=== PATIENT | female | born 1980 | race Caucasian/White ===

== ENCOUNTER 2017-09-30 19:18 | Emergency (ER) | payer MEDICAID, OTHER ==
[~2017-09-30] VITALS: Ht 167.6 cm; Wt 58.2 kg
[2017-09-30 19:20] VITALS: Ht 167.6 cm; Wt 58.2 kg
[2017-09-30] MEDS ORDERED: ACET500C5 PO (22:12)
--- NOTE | 2017-09-30 22:18 | ERD ---
ER Documentation Chief Complaint Chief Complaint right breast pain x 3 weeks HPI 37-year-old female patient with no significant past medical history presents to the ED complaining of bilateral nipple discharge and bilateral breast pain that started intermittently for the last 3 weeks. Patient reports that she predominantly has pain in the right breast. Denies any chest pain, shortness of breath, fever, chills, wheezing, abdominal pain, nausea, vomiting, diarrhea. Reports that she just got an Implanon placed in February 2017 and has not had a menstruation since then. Denies any fever, increased redness or swelling of the bilateral breasts. Denies obtaining a mammogram. ROS All systems reviewed and are negative except as per history of present illness. Medications Home Meds Active Scripts Acetaminophen* (Tylophen*) 500 Mg Capsule, 1 CAP PO Q6H Y for PAIN AND OR ELEVATED TEMP, #20 CAP Prov:YARIEL ERAZO PA-C 09/30/17 Allergies Allergies: Coded Allergies: No Known Allergy (Unverified , 09/30/17) PMhx/Soc History of Surgery: No Anesthesia Reaction: No Hx Neurological Disorder: No Hx Respiratory Disorders: No Hx Cardiac Disorders: No Hx Psychiatric Problems: No Hx Miscellaneous Medical Probl: No Hx Alcohol Use: No Hx Substance Use: No Hx Tobacco Use: No Smoking Status: Never smoker Physical Exam Vitals Vital Signs Date Time Temp Pulse Resp B/P Pulse Ox O2 Delivery O2 Flow Rate FiO2 09/30/17 19:20 98.5 83 20 132/71 100 Physical Exam Const: Fwl-[id number]-[place], well-nourished. In no acute distress. Head: Atraumatic, normocephalic Eyes: Normal Conjunctiva without injection. No purulent discharge. PERRL. EOMI ENT: Normal external ear. Ear canal without erythema. Tympanic membrane pearly lucas without effusion or bulging. Nasal canal clear with normal turbinates. Moist oropharynx without tonsillar exudates. Non-erythematous pharynx. Uvula midline. No drooling. No trismus. Neck: Full range of motion. No meningismus. No cervical lymphadenopathy. Resp: Clear to auscultation bilaterally. No wheezing, rhonchi, rales, or crackles. No accessory muscle use. No retractions. Cardio: Regular rate and rhythm. No murmurs, rubs or gallops. Breast: Nonerythematous, nonfluctuant. No masses palpated. Bilateral milky discharged when nipples are squeezed. No warmth to touch. Abd: Soft, non tender, non distended. Normal bowel sounds. No palpable masses. No rebound tenderness. No guarding. Skin: No petechiae or rashes Back: No midline tenderness. No CVA tenderness. Ext: No cyanosis, or edema. Neur: Awake and alert. Psych: Normal Mood and Affect Procedures/MDM 37-year-old female patient with no significant past medical history presents the ED complaining of bilateral breast pain that started intermittently for the last 3 weeks. Patient is afebrile nontoxic appearing. Patient has normal vital signs. At this time there is no radiologist that will read results of a breast ultrasound therefore if patient wanted to obtain an ultrasound, she was instructed to return to the ED tomorrow however there were no signs of erythema , fluctuance, masses. Patient is appropriate for outpatient management with her primary care physician. Patient should obtain blood work including a prolactin level since she has bilateral milky nipple discharge. No purulent discharge. Low suspicion for mastitis, deep space infection, sepsis, cellulitis , fat necrosis, malignancy or other emergent conditions. Negative urine . Discharge medications: Tylenol Follow up with primary care physician in 1-2 days. Instructed patient to return to the ED sooner for any worsening symptoms. Patient's questions were answered. Patient understood and agreed with discharge plan. Patient discharged stable. Departure Diagnosis: Primary Impression: Breast pain Additional Impression: Nipple discharge Condition: Stable Patient Instructions: Breast Self-Exam (BSE), Mammography, Prolactin (Blood) [facility] Usted se mueller hecho un examen mdico de control que le indica que no est en hemalatha condicin que requiera tratamiento urgente en el Departamento de Emergencia. Un estudio ms profundo y el tratamiento de montes de oca condicin pueden esperar sin ningn riesgo hasta que usted sea atendida/o en el consultorio de montes de oca mdico o hemalatha cl montez. Es responsabilidad suya arreglar hemalatha rosa para el seguimiento del maragret. MANEJO DE CONDICIONES NO URGENTES EN EL FUTURO 1) Si usted tiene un mdico de atencin primaria: Usted debera llamar a montes de oca mdico de atencin primaria antes de venir al departamento de emergencia. Despus de las horas de consultorio, montes de oca doctor o montes de oca asociado/a est disponible por telfono. El mdico o enfermero de pebbles en el servicio telefnico puede asesorarle por clayton medio para atender el problema, o margaret contrario se puede programar hemalatha rosa. 2) Si usted no tiene un mdico de atencin primaria: Llame al mdico o clnica de referencia que aparece abajo deshawn las horas de consultorio para hacer hemalatha rosa para que le vean. CLINICAS: [facility] [phone] [address] [facility] [phone] [facility] [phone] [address] [facility] [phone] [address] [facility]. [facility] [phone] [address] [facility] [phone] [address] [facility]. [facility] () Usted se mueller hecho un examen mdico de control que le indica que no est en hemalatha condicin que requiera tratamiento urgente en el Departamento de Emergencia. Un estudio ms profundo y el tratamiento de montes de oca condicin pueden esperar sin ningn riesgo hasta que usted sea atendida/o en el consultorio de montes de oca mdico o hemalatha cl montez. Es responsabilidad suya arreglar hemalatha rosa para el seguimiento del margaret. MANEJO DE CONDICIONES NO URGENTES EN EL FUTURO 1) Si usted tiene un mdico de atencin primaria: Usted debera llamar a montes de oca mdico de atencin primaria antes de venir al departamento de emergencia. Despus de las horas de consultorio, montes de oca doctor o montes de oca asociado/a est disponible por telfono. El mdico o enfermero de pebbles en el servicio telefnico puede asesorarle por clayton medio para atender el problema, o margaret contrario se puede programar hemalatha rosa. 2) Si usted no tiene un mdico de atencin primaria: Llame al mdico o condado institucions de referencia que aparece abajo deshawn las horas de consultorio para hacer hemalatha rosa para que le vean. SI USTED NO PUEDE PAGAR PARA ALANNAH UN MEDICO puede ir a: [facility] [address] [place] [address] [facility] [address] [place] [address] [facility] [address] [place] [address] [facility] [address] [place], [place] [phone] HEALTH CLAIMS EXAMINER [place] [address] [facility] [address] [place], [place] [phone] OFFICE FAX ROBERT BLANDON [address] [place], [place] [phone] [place] [address] [place], [place] [phone] MARIPOSA GREY [address] [facility], [address] [address] [address] [address] [place] [phone] [facility] COOPER [address] [place] [address] [address] [facility] [id number] - DR JACOME, NANCY [address] [place] [address] DR ZEPEDA, MARC [address] [facility]. [address], [place] [address] [address] [place], FARID [address] [place] [address] Additional Instructions: Visite a montes de oca mdico maana para un EXAMEN para obtener el trabajo de la gabe para la evaluacin y el tratamiento posteriores. Dependiendo del trabajo de la gabe usted debe obtener hemalatha referencia para alannah a un obstetra/gineclogo o endocrinlogo. Regrese a estas instalaciones si no se mejora deon esperbamos o deon le dijimos para cualquier fiebre, enrojecimiento, hinchazn, masa de mama. YARIEL ERAZO PA-C Sep 30, 2017 22:18 YARIEL ERAZO PA-C Sep 30, 2017 22:18
== END 2017-09-30 22:14 | disposition home or self-care (01) ==
LOC: FTE 19:18
DX: N64.4 Mastodynia (principal); N64.52 Nipple discharge
CPT/HCPCS: 99283